=== PATIENT | male | born 1990 | race Caucasian/White ===

== ENCOUNTER 2019-04-16 17:00 | Outpatient (CLI) | payer OTHER | END 2019-04-16 17:01 | disposition home or self-care (01) | LOC: SLEEPLAB 17:00 | PROVIDERS: ATTEND Family Medicine | DX: G47.33 Obstructive sleep apnea (adult) (pediatric) (principal); R53.83 Other fatigue; G47.10 Hypersomnia, unspecified | CPT/HCPCS: 95806 ==

== ENCOUNTER 2019-06-17 20:30 | Outpatient (CLI) | payer OTHER | END 2019-06-17 20:31 | disposition home or self-care (01) | LOC: SLEEPLAB 20:30 | PROVIDERS: ATTEND Family Medicine | DX: G47.33 Obstructive sleep apnea (adult) (pediatric) (principal); R53.83 Other fatigue | CPT/HCPCS: 95811 ==

== ENCOUNTER 2019-07-10 19:30 | Outpatient (CLI) | payer OTHER | END 2019-07-10 19:31 | disposition home or self-care (01) | LOC: SLEEPLAB 19:30 | PROVIDERS: ATTEND Family Medicine | DX: G47.33 Obstructive sleep apnea (adult) (pediatric) (principal); R53.83 Other fatigue; R06.83 Snoring; G47.00 Insomnia, unspecified; G47.10 Hypersomnia, unspecified | CPT/HCPCS: 95810 ==

== ENCOUNTER 2019-07-15 14:17 | Outpatient (CLI) | payer OTHER | END 2019-07-15 14:18 | disposition home or self-care (01) | LOC: CTENTCT 14:17 | PROVIDERS: ATTEND Otolaryngology Plastic Surgery within the Head & Neck | DX: J32.9 Chronic sinusitis, unspecified (principal); J34.2 Deviated nasal septum | CPT/HCPCS: 70486 ==

== ENCOUNTER 2019-08-11 07:05 | Day surgery (SDC) | payer OTHER ==
[2019-08-10 11:37] VITALS: BMI 28.8
[2019-08-11] MEDS ORDERED: Fentanyl 250 MCG/5 ML VIAL ONE (07:36)
[2019-08-11] MEDS ORDERED: Oxymetazoline HCl 0.05% ( 15 ML ) ONE (08:41)
[2019-08-11] MEDS ORDERED: Midazolam HCl 2 mg/2 ml Vial ONE (08:52)
[2019-08-11] MEDS ORDERED: PROPOFOL 200 MG/20 ML VIAL ONE (10:01)
[2019-08-11] MEDS ORDERED: Ondansetron PF 4 MG/2 ML Vial ONE (10:01)
[2019-08-11] MEDS ORDERED: Rocuronium Bromide 10 MG/ML (10ML VIAL) ONE (10:01)
[2019-08-11] MEDS ORDERED: Lidocaine 1% PF 5 ML VIAL ONE (10:01)
--- NOTE | 2019-08-12 13:32 | OP ---
DATE OF PROCEDURE: 08/11/2019 PREOPERATIVE DIAGNOSES: 1. Chronic rhinosinusitis. 2. Nasal septal deviation. 3. Bilateral inferior turbinate hypertrophy. 4. Nasal obstruction. POSTOPERATIVE DIAGNOSES: 1. Chronic rhinosinusitis. 2. Nasal septal deviation. 3. Bilateral inferior turbinate hypertrophy. 4. Nasal obstruction. PROCEDURES PERFORMED: 1. Bilateral endoscopic sinus surgery, total ethmoidectomies. 2. Bilateral endoscopic sinus surgery, maxillary antrostomies. 3. Bilateral endoscopic sinus surgery, frontal sinusotomies. 4. Bilateral endoscopic sinus surgery, sphenoidotomies. 5. Nasal septoplasty. 6. Bilateral inferior turbinate submucosal resection. ESTIMATED BLOOD LOSS: 20 mL. COMPLICATIONS: None. ANESTHESIA: GETA. DESCRIPTION OF PROCEDURE: The patient was taken to the operating room and GETA was obtained by the anesthesia staff. Afrin pledgets were then placed into the nasal cavity bilaterally. The patient was placed into the beach chair position and was prepped and draped for standard nasal surgical procedures. Following this, the Afrin pledgets were removed and 1% lidocaine with 1:100,000 epinephrine was injected via a 27 gauge needle into the nasal septum, the inferior turbinate and the middle turbinate bilaterally. Following this, a [place] incision was made on the left nasal septum and mucoperichondrial flaps were elevated. A strong 2 cm caudal and dorsal cartilage strut was left intact as the deviated portions of the nasal cartilage and bone was removed. A 4-0 gut stitch was used to reapproximate the nasal mucoperichondrial flaps as well as close the [place] incision. Following this, the submucosal microdebrider was used to puncture and submucosally resect the anterior-inferior portions of the hypertrophic inferior turbinates. The inferior turbinates were laterally outfractured with a [place] elevator. Following this, 1% lidocaine with 1:100,000 epinephrine were injected into the middle turbinates and lateral nasal wall bilaterally. Following this, the 0-degree endoscope was used to visualize the middle turbinate and the middle turbinate was medially fractured using a [place] elevator. Following this, the uncinate process was identified and was examined. The uncinate process was noted to be inflamed and laterally displaced bilaterally. Following this, a ball-ended probe was used to anteriorly fracture the uncinate process bilaterally. Following this, the 0-degree microdebrider and the up-biting [place] forceps were used to remove the uncinate process bilaterally. Following this, the natural maxillary sinus ostia was identified with the 0-degree endoscope and the ball-ended probe. The natural maxillary ostia were then widened using a 40-degree microdebrider and the straight [place] forceps bilaterally. Following this, the ethmoidal bulla was identified bilaterally. A 0-degree microdebrider was used to puncture the ethmoidal bulla on its medial and inferior aspect bilaterally. Following this, the 0-degree microdebrider and the up-biting [place] forceps were used to remove the ethmoidal bulla. Following this, the grand lamella was identified posterior to this area and was punctured using the 0-degree microdebrider bilaterally. Following this, the ethmoidal cells were opened from the posterior to the anterior using the 0-degree microdebrider, the 40-degree microdebrider and the up-biting [place] forceps bilaterally. Following this, the 45-degree endoscope and the 40-degree microdebrider blade were used to further remove the anterior ethmoidal cells to the level of the frontal sinus recess bilaterally. Following this, the 0-degree endoscope was then advanced staying medial to the middle turbinate until the posterior nasal wall was visualized. Staying just medial and inferior to the attachment of the superior turbinate, a sphenoidotomy was created using a [place] tip suction bilaterally. Following this, the 0-degree microdebrider was used to further open the sphenoidotomies bilaterally in a medial and inferior direction. Following this, the 45-degree endoscope along with the 40-degree microdebrider blade was used to further open the anterior ethmoidal cells and expose the frontal recess and frontal sinus ostia bilaterally. Following this, the frontal sinus ostia were widened using the 40-degree microdebrider and up-biting [place] forceps bilaterally. Following this, the nasal cavity was irrigated, and NasoPore packing was placed within the middle meatus. Pimentel splints were then placed and secured. The patient tolerated the procedure well. Job ID: [id number]
== END 2019-08-11 13:02 | disposition home or self-care (01) ==
LOC: SDC 07:05
PROVIDERS: ATTEND Otolaryngology Plastic Surgery within the Head & Neck
PROC: 09TL8ZZ Resection of Nasal Turbinate, Via Natural or Artificial Opening Endoscopic (ICD-10-PCS; principal; 2019-08-11)
PROC: 09CW8ZZ Extirpation of Matter from Right Sphenoid Sinus, Via Natural or Artificial Opening Endoscopic (ICD-10-PCS; principal; 2019-08-11)
PROC: 09TU8ZZ Resection of Right Ethmoid Sinus, Via Natural or Artificial Opening Endoscopic (ICD-10-PCS; principal; 2019-08-11)
PROC: 099R8ZZ Drainage of Left Maxillary Sinus, Via Natural or Artificial Opening Endoscopic (ICD-10-PCS; principal; 2019-08-11)
PROC: 099Q8ZZ Drainage of Right Maxillary Sinus, Via Natural or Artificial Opening Endoscopic (ICD-10-PCS; principal; 2019-08-11)
PROC: 09BM8ZZ Excision of Nasal Septum, Via Natural or Artificial Opening Endoscopic (ICD-10-PCS; principal; 2019-08-11)
PROC: 09CX8ZZ Extirpation of Matter from Left Sphenoid Sinus, Via Natural or Artificial Opening Endoscopic (ICD-10-PCS; principal; 2019-08-11)
PROC: 09TV8ZZ Resection of Left Ethmoid Sinus, Via Natural or Artificial Opening Endoscopic (ICD-10-PCS; principal; 2019-08-11)
DX: J32.4 Chronic pansinusitis (principal); J34.2 Deviated nasal septum; J34.3 Hypertrophy of nasal turbinates; Z79.899 Other long term (current) drug therapy
CPT/HCPCS: J0131; J2001; J2250; J2405; J2704; J3010